=== PATIENT | male | born 1955 | race Caucasian/White ===

== ENCOUNTER 2024-06-18 16:04 | Inpatient (IN) | payer MEDICARE, OTHER, SELFPAY ==
[2024-06-18] VITALS (11 sets, daily range): BP systolic 105–135; BP diastolic 64–92; BMI 35.0
--- NOTE | 2024-06-18 14:48 | ED.GENMED ---
History of Present Illness
General
Chief Complaint: Chest Pain
Source: patient
Exam Limitations: none
Time Seen by Provider: 06/18/24 14:47
Nursing documentation reviewed up to this point in time: agreed with
History of Present Illness
History of Present Illness:
68-year-old male presents emergency department after a syncope episode while at work. 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 He noted some chest pain that felt like reflux. He vomited. He reports some mild chest pain this time. It
does not radiate to his back or abdomen.
Past History
Past History
ED Past Medical History: CAD, Hypercholesterolemia, NIDDM and Other (Kidney stones)
ED Past Surgical History: Urological
Social History
Tobacco: Non-smoker
Alcohol: None
Drug: None
Personal:
Living: with family
Employment: Employed
Review of Systems
Review of Systems
Allergies reviewed?: Yes
All Other Systems: Not applicable
Constitutional: Reports no symptoms
EENT: Reports no symptoms
Respiratory: Reports no symptoms
Cardiac: Reports chest pain, diaphoresis and syncope
ABD/GI: Reports no symptoms
: Reports no symptoms
Musculoskeletal: Reports no symptoms
Skin: Reports no symptoms
Neurological: Reports no symptoms
Endocrine: Reports no symptoms
Hematologic/Lymphatic: Reports no symptoms
Psychiatric: Reports no symptoms
Phy Exam
Physical Exam
Physical Exam:
Physical Exam
General: Appears uncomfortable, diaphoretic, vomit on shirt
Neck: supple. no meningeal signs. normal posterior pharynx
Heart: s1/s2 regular rate and rhythm, no murmur. equal radial
pulses.
HEENT: Pupils equal round reactive to light, EOMI
Lungs: no acute respiratory distress. clear bilaterally
Abdomen: normal bowel sounds. not tender. no CVAT
Neuro: alert and oriented. no focal neurological deficits cranial nerves II through XII intact
Skin: no rash
Psychiatric: well kept. interactive and cooperative
Extremities: no edema. no calf tenderness. negative homans. good distal pulses
Scores
Heart Score for Chest Pain Patients
STEMI patient?: Yes
Course
Orders/Labs/Results
Orders:
Orders
06/18/24
Electrocardiogram (*1) Stat
Reason for Study: Chest Pain
Comment: DONE
06/18/24 14:41
Electrocardiogram (*1) Urgent
Reason for Study: Chest Pain
EKG- Treatment ONCE
Complete Blood Count/With Diff Urgent
Comprehensive Metabolic Panel Urgent
Protime/PTT Urgent
Troponin I Urgent
MDM/Problems Addressed
Differential Diagnosis Includes:
Dysrhythmia, STEMI
MDM/Problems Addressed:
68-year-old male with STEMI, syncope. Dr. Hess evaluated in ED and took to [facility] where Dr. Dallas will cath. Heparin 4000 given, aspirin 324 and brilinta 180 given.
Chronic conditions affecting care: CAD
Acute Exacerbation and/or Progression of Chronic Illness: CAD
*Pulse Oximetry
Patient hypoxic: no
*EKG
Interpreted by ED Provider?: Yes
EKG Intrepretation Date: 06/18/24
EKG Intrepretation Time: 14:40
Interpretation: abnormal
Comparison EKG: no comparison EKG present
Heart Rate: 60
Rate: normal
Rhythm: sinus
[place]: normal axis
Interval: normal interval
QRS Pattern: normal QRS
Ischemia: ST elevation
*Kitchen Utility Associate Interpretation
Rate: normal
Interpretation: normal
Heart Rate: 62
Rhythm: sinus
*Critical Care Note
Total Time (30-74mins, 75-104mins- exclusive of procedures): Not Applicable
Data Reviewed
Review of Other/Old Records Reveals: Operative Reports (LAD stent placed by Dr. Dallas 03/01/13)
Source: records
Patient Management
Social determinants of health affecting care: Living situation and Strong social support
Discussion with other providers: Civil Design Technician (Jimena Dallas)
Escalation/DeEscalation of care consider admission/obs:
[facility] admit indicated due to STEMI
ED Attending Note
-
Portions of this chart may have been created with voice recognition software.� Occasional wrong word or��sound alike� substitutions may have occurred due to the inherent limitations of voice recognition software.
Discharge Plan
Departure
Patient Disposition: CUSTOMER SPECIALIST
Date of Disposition: 06/18/24
Time of Disposition: 14:47
Admit to: labor commissioner
Presentation/result/management discussed w/ accepting MD/DO: Dr. Hess, cardiology
Patient with high blood pressure during this ER visit?: Yes
Condition: Fair
Discharge Problem:
ST elevation (STEMI) myocardial infarction, Syncope
Prescriptions:
No Action
aspirin 81 MG tablet,delayed release (DR/EC)
81 mg PO DAILY
metformin 500 mg Tablet
500 mg PO BID
atorvastatin 20 mg Tablet
20 mg PO DAILY
glipizide 10 mg Tablet
10 mg PO DAILY
ondansetron 8 mg tablet,disintegrating
8 mg PO TID PRN (Reason: nausea and vomiting) Qty: 20 0RF
oxycodone 5 mg tablet
5 mg PO Q4H PRN (Reason: pain) Qty: 20 0RF
tamsulosin [Flomax] 0.4 mg Capsule
0.4 mg PO DAILY Qty: 14 0RF
Referrals:
Campbell Damon DO [Family Provider] -
Discharge Date and Time
Print Language: PORTUGUESE
[2024-06-18 15:08] LABS: % Basophils 0.6 % (0-2); % Eosinophils 3.5 % (0-6); % Immature Granulocytes 0.4 % (0-0.5); % Lymphocytes 34.5 % (20.5-51.1); % Monocytes 7.4 % (1.7-9.3); % Neutrophils 53.6 % (42.2-75.2); Absolute Basophils 0.1 10^3/uL (0-0.2); Absolute Eosinophils 0.4 10^3/uL (0-0.7); Absolute Immature Granulocytes 0.1 10^3/uL (0-0.05); Absolute Lymphocytes 4.3 10^3/uL (1.2-3.4); Absolute Monocytes 0.9 10^3/uL (0.1-0.6); Absolute Neutrophils 6.6 10^3/uL (1.4-6.5); Hematocrit 49.5 % (39.0-52.0); Hemoglobin 17.3 g/dL (13.0-18.0); Mean Corp Hgb Conc. 34.9 g/dL (33.0-37.0); Mean Corpuscular Volume 85.9 fL (80.0-94.0); Mean Platelet Volume 11.5 fL (7.4-10.4); Nucleated Red Blood Cells % 0 % (-); Platelet Count 265 10^3/uL (130-400); Red Blood Cell Count 5.76 10^6/uL (4.70-6.10); White Blood Cell Count 12.4 10^3/uL (4.8-10.8)
[2024-06-18 15:11] LABS: ACT-LR - POC 244 Seconds (116-155)
[2024-06-18 15:18] LABS: ALT (SGPT) 27 U/L (0-50); AST (SGOT) 28 U/L (17-59); Albumin 4.9 g/dl (3.5-5.0); Alkaline Phosphatase 137 U/L (38-126); Blood Urea Nitrogen 27 mg/dl (9-20); Calcium 9.7 mg/dl (8.4-10.2); Carbon Dioxide 22 mmol/L (22-30); Chloride 104 mmol/L (98-107); Estimated Creatinine Clearance 65 ml/min; Glucose 245 mg/dl (70-99); Potassium 4.4 mmol/L (3.5-5.1); Sodium 143 mmol/L (135-145); Total Bilirubin 0.6 mg/dl (0.2-1.3); Total Protein 7.9 g/dl (6.3-8.2); eGFR > 60.00
--- NOTE | 2024-06-18 15:21 | HPS.HSE ---
Family Physician
-
Family Physician: Campbell Damon
Chief Complaint
-
Syncope/STEMI
History of Present Illness
68-year-old male presents to ED after a syncopal episode while at work. 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 EKG with inferior STEMI and he was given ASA/Heparin/Brilinta and
brought urgently to the lab[facility]. On arrival he denies chest pain.
Medical History
Past Medical History
Past Medical History: Reports CAD (PCI LAD 2012), HTN, Hypercholesterolemia, NIDDM and Other (Kidney stones, diverticulosis, lumbar disc disease, MICKEY)
Past Surgical History: Reports Cardiac (stent) and Urological (vasectomy)
Social History
Tobacco: Non-smoker
Alcohol: None
Drug: None
Personal:
Living: With Family
Employment: Employed (Radiologist at )
Family History
Family History: Not pertinent
Allergies / Home Medications
Allergies reflects when Allergies were last updated in [email or web address].
Home Medications with original date entered in [email or web address]
Allergy/Medication List:
Allergies
Allergy/AdvReac Type Severity Reaction Status Date / Time
No Known Allergies Allergy Verified 06/18/24 14:42
�Medication �Instructions �Recorded �Confirmed �Type
aspirin 81 mg tablet,delayed 81 mg PO DAILY 03/01/13 06/18/24 History
release
glipizide 10 mg tablet 10 mg PO DAILY 06/11/22 06/18/24 History
metformin 500 mg tablet 500 mg PO BID 06/11/22 06/18/24 History
atorvastatin 40 mg tablet 40 mg PO QPM 06/18/24 06/18/24 History
dapagliflozin propanediol 10 mg 10 mg PO DAILY 06/18/24 06/18/24 History
tablet (Farxiga)
lisinopril 10 mg tablet 10 mg PO DAILY 06/18/24 06/18/24 History
Review of Systems
-
A 12 point ROS was completed and negative except as noted: Yes
Physical Exam
Vital Signs
Vital Signs
Pulse Resp BP Pulse Ox
99 18 135/92 97
06/18/24 14:42 06/18/24 14:42 06/18/24 14:42 06/18/24 14:42
Physical Exam
General: No Apparent Distress (deferred as patient prepped and draped on laborer wrecking and salvaging table for emergent procedure)
Laboratory Results
-
06/18/24 14:51
06/18/24 14:51
Laboratory Results
PT Cancelled 06/18/24 14:51
INR Cancelled 06/18/24 14:51
APTT Cancelled 06/18/24 14:51
Total Bilirubin 0.6 mg/dl (0.2-1.3) 06/18/24 14:51
AST 28 U/L (17-59) 06/18/24 14:51
ALT 27 U/L (0-50) 06/18/24 14:51
Alkaline Phosphatase 137 U/L (38-126) H 06/18/24 14:51
Data Reviewed
-
Medical Tests (Nuc Med, Echo, EKG etc): Report Reviewed by me
Impression/Plan
-
PCP: Campbell Damon, DO
CDY: Koko Dallas MD
IMPRESSION/PLAN:
#Inferior STEMI/Syncope - post PCI RCA, admit IVU, radial band per protocol
Serial troponin to peak
Check Echo, EF nl, no valve disease 2022
DAPT ASA/Brilinta
continue lisinopril, new start to metoprolol, statin
#Hyperlipidemia - Check lipid profile, continue atorvastatin 40mg daily
#NIDDM - A1c 9.6% in 2021, recheck A1c, SSI while hospitalized
hold metformin 48 hours post procedure
resume glipizide and farxiga
#HTN - continue lisinopril, will add BB, monitor trend
continue to monitor 48 hours on tele
[2024-06-18 15:26] LABS: ACT-LR - POC > 397 Seconds (116-155)
[2024-06-18 15:49] LABS: Troponin I 0.275 ng/ml
--- NOTE | 2024-06-18 16:17 | ITS.CL.CATH ---
Carbon Sequestration Plant Operator - Catheterization
Cardiac Catheterization
Procedure Report:
CARDIAC CATHETERIZATION REPORT
Date of Procedure: 06/18/2024
Referring: Domingo Judge DO
Indication: Inferior STEMI
�
HEMODYNAMIC DATA
AO:123/78
LV: 123/16
�
LEFT VENTRICULOGRAPHY: Inferior hypokinesis with otherwise normal wall motion with EF 51%
�
CORONARY ANGIOGRAPHY
Dominance: Right
Left Main: Normal
LAD: Widely patent stent extending from the proximal into the mid LAD (JER 2012). The stent has no restenosis. The remainder of the LAD proper has trivial luminal disease. The medium sized D1 originates from within the stented segment and has
high-grade ostial disease
Circumflex: Mild luminal irregularities
RCA: 99% proximal RCA stenosis on an extremely angulated segment. There is MINDY grade II flow distal to the lesion
Angioplasty: The patient underwent immediate PCI for involving inferior STEMI. Heparin was used for anticoagulation. He had chewed Brilinta 180 mg and been given aspirin 324 mg in the emergency department. He takes his aspirin 81 mg daily
religiously and did take it this morning. A 6 Sami JR4 guide catheter was used. A Hi-Torque floppy wire was advanced to the lesion site but we were not able to get this wire through the lesion into the mid RCA. A 0.014 compatible Jacqueline
exchange catheter was then advanced into the RCA and the floppy wire removed and exchanged for a Fielder XT wire. At this time there was loss of flow in the RCA with significant ST segment elevation on the monitor and recurrent severe chest
discomfort. He had mild bradycardia but did not require atropine and systolic blood pressure remained greater than 100 mmHg. With some extremely good fortune, we were able to get the Fielder XT wire through the lesion and then down into the distal
RCA. The exchange catheter would not cross the lesion�we were going to cross the lesion and exchanged for a more supportive guidewire if that were possible. The exchange catheter was removed and angioplasty accomplished with a 2.0 x 15 Euphora
balloon inflated to 10 ana. We then placed a 3.25 x 15 Xience JER across the lesion and deployment at 14 naa was followed by postdilatation with a 3.25 NC Euphora to 17 ana. The final angiographic result was outstanding with no residual stenosis
and advent of MINDY grade III flow to a large PDA and three moderate-sized right posterolateral branches. There were no procedural complications. Once flow was restored, ST segment elevation on the monitor completely resolved and chest
discomfort improved significantly
�
Closure Device: None-the procedure was performed via the right radial artery. The Omer's test was normal prior to the procedure.
�
Radiation (mGy): 1044
DAP (cm2.Gy): 70.2
Fluoroscopy time: 10.8 minutes
�
CONCLUSIONS
1:�I nferior STEMI of approximately 1 hours duration
2:��Inferior hypokinesis with EF 51%
3. Double-vessel CAD involving the proximal RCA and D1 as described. The ostial diagonal lesion originates from within the stented segment of LAD and is best treated medically unless he develops symptoms from this lesion. Of note, this lesion was
not present at the completion angiogram from the February 2013 procedure.
4. 99% proximal RCA stenosis with slow antegrade flow successfully stented with 3.25 x 15 Xience JER with outstanding result
5. Recommend DAPT for 12 months and continued aggressive risk factor modification efforts. High intensity statin should continue with the target LDL 55 or below
�
�
Copy to: Campbell Damon DO, Rufino Soto MD, Koko Dallas MD
�
Koko Dallas MD, [facility], [facility]
[2024-06-18] MEDS: NSS 1000 IV (16:30)
[2024-06-18 16:33] LABS: Glucose - Point of Care 229 mg/dl (70-99)
--- NOTE | 2024-06-18 18:02 | PTCARENOTE ---
Received pt post cath. VSS. Right radial cath site w/ R band intact w/ 10 ml of air. Pt denies chest pain. Orders noted. Will monitor.
[2024-06-18] MEDS: NOVOLOG FLEXPEN-MODERATE RESISTANCE 3 UNITS SC (18:18)
[2024-06-18] MEDS: LIPITOR 40 MG PO (18:22)
[2024-06-18] MEDS: BRILINTA 90 MG PO (19:51)
[2024-06-18 22:32] LABS: Glucose - Point of Care 172 mg/dl (70-99)
--- NOTE | 2024-06-18 23:09 | PTCARENOTE ---
Received patient at change of shift. SR on the monitor, HR in the 90s. R radial band removed and dressing applied as per protocol, see documentation. Dressing CDI. No complaints from pt at this time, call godwin within reach.
[2024-06-19 04:31] VITALS: BP 125/73
[2024-06-19 05:02] LABS: Hematocrit 42.1 % (39.0-52.0); Hemoglobin 14.7 g/dL (13.0-18.0); Mean Corp Hgb Conc. 34.9 g/dL (33.0-37.0); Mean Corpuscular Hgb 30.2 pg (27.0-31.0); Mean Corpuscular Volume 86.6 fL (80.0-94.0); Mean Platelet Volume 11.5 fL (7.4-10.4); Platelet Count 216 10^3/uL (130-400); Red Blood Cell Count 4.86 10^6/uL (4.70-6.10); Red Cell Dist. Width 12.9 % (11.5-14.5); White Blood Cell Count 9.2 10^3/uL (4.8-10.8)
[2024-06-19 05:25] LABS: Blood Urea Nitrogen 27 mg/dl (9-20); Calcium 9.1 mg/dl (8.4-10.2); Carbon Dioxide 22 mmol/L (22-30); Chloride 107 mmol/L (98-107); Estimated Creatinine Clearance 70 ml/min; Glucose 170 mg/dl (70-99); HDL Cholesterol 48 mg/dl; LDL Cholesterol, Calculated 74 mg/dl; Potassium 4.2 mmol/L (3.5-5.1); Sodium 142 mmol/L (135-145); Total Cholesterol 153 mg/dl (50-199); Triglyceride 156 mg/dl (10-149); Very Low Density Lipoprotein 31 mg/dl (0-30); eGFR > 60.00
[2024-06-19 06:52] VITALS: BP 114/76
[2024-06-19] MEDS: ZESTRIL 10 MG PO (07:43)
[2024-06-19] MEDS: FARXIGA 10 MG PO (07:45)
[2024-06-19] MEDS: LOW STRENGTH ASPIRIN 81 MG PO (07:45)
[2024-06-19] MEDS: BRILINTA 90 MG PO ×2 (07:45→19:42)
[2024-06-19] MEDS: GLUCOTROL 10 MG PO (07:45)
[2024-06-19] MEDS: TOPROL XL 25 MG PO ×2 (07:45→19:41)
[2024-06-19] MEDS: FLUSH (NSS) 2 FLUSH IV (07:46)
[2024-06-19 07:49] LABS: Glucose - Point of Care 186 mg/dl (70-99)
[2024-06-19] MEDS: NOVOLOG FLEXPEN-MODERATE RESISTANCE 1 UNITS SC ×2 (07:49→12:01)
[2024-06-19 08:25] LABS: ACT-LR - POC > 397 Seconds (116-155)
--- NOTE | 2024-06-19 08:46 | W.PN.CARDCBS ---
Addendum entered and electronically signed by Carlos Small MD 06/19/24 09:21:
68 yo male with CAD, HTN, DM admitted with inferior STEMI, s/p JER to RCA 06/18. Chest pain free today. Exam with RRR, no murmurs, no edema. LDL 74. A1c pending. Tele: SR 90s.
Echo today.
Continue DAPT.
Increase Toprol XL to 25mg bid.
Increase atorvastatin to 80mg to target LDL under 55.
Original Note:
Today's Communication / Plan
-
continue post MN care
DAPT ASA/Brilinta
Impression / Plan
-
Primary care physician: Campbell Damon, DO
Primary road maker: Koko Dallas MD
IMPRESSION/PLAN:
#Inferior STEMI/Syncope - post PCI RCA [id number] Xience JER, patent LAD stent
residual ostial D1 stenosis will treat medically for now
Rad site stable, tele SR with one 3b NSVT
Serial troponin to peak, 8.45 this am
Check Echo today, EF nl, no valve disease 2022
DAPT ASA/Brilinta (CM to eval cost)
continue lisinopril, atorvastatin, new start to metoprolol
Cardiac rehab c/s
f/u cbc AGENCY DIRECTOR in 2-4 weeks
#Hyperlipidemia - LDL 74, TG 156, goal LDL under 55, continue atorvastatin 40mg daily, t/c adding ezetimibe
#NIDDM - A1c 9.6% in 2021, he states more recently was 7.6%, A1c pending, SSI while hospitalized
hold metformin 48 hours post procedure
resume glipizide and farxiga
#HTN - continue lisinopril, will add BB, monitor trend
continue to monitor another 24 hours on tele
CONCLUSIONS
1:�I nferior STEMI of approximately 1 hours duration
2:��Inferior hypokinesis with EF 51%
3. Double-vessel CAD involving the proximal RCA and D1 as described. The ostial diagonal lesion originates from within the stented segment of LAD and is best treated medically unless he develops symptoms from this lesion. Of note, this lesion was
not present at the completion angiogram from the February 2013 procedure.
4. 99% proximal RCA stenosis with slow antegrade flow successfully stented with 3.25 x 15 Xience JER with outstanding result
5. Recommend DAPT for 12 months and continued aggressive risk factor modification efforts. High intensity statin should continue with the target LDL 55 or below
Progress Note - Inspector Packer Glass Container
Subjective
Date of Service: June 19, 2024
no cp, sob
Objective
Labs:
06/19/24 04:45
06/19/24 04:45
Labs
Hgb 14.7 g/dL (13.0-18.0) 06/19/24 04:45
Hct 42.1 % (39.0-52.0) 06/19/24 04:45
Plt Count 216 10^3/uL (130-400) 06/19/24 04:45
PT Cancelled 06/18/24 15:13
INR Cancelled 06/18/24 15:13
APTT Cancelled 06/18/24 15:13
Sodium 142 mmol/L (135-145) 06/19/24 04:45
Potassium 4.2 mmol/L (3.5-5.1) 06/19/24 04:45
BUN 27 mg/dl (9-20) H 06/19/24 04:45
Creatinine 1.2 mg/dL (0.7-1.3) 06/19/24 04:45
Glucose 170 mg/dl (70-99) H 06/19/24 04:45
Troponins
06/18/24 06/18/24 06/19/24
14:51 21:05 04:45
Troponin I 0.275 H* 6.500 H* D 8.540 H* D
Vital Signs and I&O:
Vital Signs
Temp Pulse Resp BP Pulse Ox
98.3 F 97 20 114/76 97
06/19/24 06:50 06/19/24 07:30 06/19/24 06:50 06/19/24 06:52 06/19/24 06:50
Vital Signs
Temp Pulse Resp BP Pulse Ox
98.3 F 97 20 114/76 97
06/19/24 06:50 06/19/24 07:30 06/19/24 06:50 06/19/24 06:52 06/19/24 06:50
Intake & Output
06/17/24 06/18/24 06/19/24 06/20/24
06:59 06:59 06:59 06:59
Intake Total 1020 / 1020
Balance 1020 / 1020
Physical Exam
Physical Exam
NAD, AOX3
S1, S2, RRR, no murmur
CTAB, non labored, no wheeze
SNTND bsx4
R rad site c/d/i no HT, good pulse
--- NOTE | 2024-06-19 10:00 | CM ---
Chart reviewed. Patient is independent of ADLS, lives with his in a [address], [address], 0 [address]. Plan is for the patient to return home. CM to follow
--- NOTE | 2024-06-19 10:00 | CM ---
Pricing on Raulito freire the patients [employer] is $413 for the first month, patient is in the deductible phase. Then it will be $103 for a 30 day supply. I placed a free 30 day coupon in the patient's red discharge folder.
--- NOTE | 2024-06-19 11:13 | PTCARENOTE ---
Patient AAOx3, VSS, NSR/SA noted on the monitor. Right wrist dressing c/d/i. He has no complaints. Awaiting Echo.
[2024-06-19 11:54] VITALS: BP 101/77
[2024-06-19 11:59] LABS: Glucose - Point of Care 188 mg/dl (70-99)
[2024-06-19 14:31] LABS: Glycohemoglobin (HgbA1c) 10.8 % (4.0-5.6)
[2024-06-19 16:06] VITALS: BP 113/75
[2024-06-19] MEDS: LOVENOX 40 MG SC (17:33)
[2024-06-19] MEDS: LIPITOR 80 MG PO (17:33)
[2024-06-19] MEDS: NOVOLOG FLEXPEN-MODERATE RESISTANCE SC (17:39)
[2024-06-19 17:40] LABS: Glucose - Point of Care 131 mg/dl (70-99)
[2024-06-19 19:41] VITALS: BP 141/92
--- NOTE | 2024-06-19 20:47 | PTCARENOTE ---
Received patient at change of shift. SR on the monitor, HR in the 90s. VSS. R radial dressing CDI, surrounding skin intact. No complaints from pt at this time, call godwin within reach.
[2024-06-19 22:41] VITALS: BP 129/89
[2024-06-19 22:43] LABS: Glucose - Point of Care 154 mg/dl (70-99)
[2024-06-20 04:43] VITALS: BP 104/75
[2024-06-20 05:25] LABS: Hemoglobin 14.8 g/dL (13.0-18.0); Mean Corp Hgb Conc. 34.4 g/dL (33.0-37.0); Mean Corpuscular Hgb 29.8 pg (27.0-31.0); Mean Corpuscular Volume 86.5 fL (80.0-94.0); Mean Platelet Volume 11.3 fL (7.4-10.4); Platelet Count 215 10^3/uL (130-400); Red Blood Cell Count 4.97 10^6/uL (4.70-6.10); Red Cell Dist. Width 13.2 % (11.5-14.5); White Blood Cell Count 7.6 10^3/uL (4.8-10.8)
[2024-06-20 05:54] LABS: Blood Urea Nitrogen 29 mg/dl (9-20); Calcium 9.1 mg/dl (8.4-10.2); Carbon Dioxide 22 mmol/L (22-30); Chloride 105 mmol/L (98-107); Estimated Creatinine Clearance 65 ml/min; Glucose 166 mg/dl (70-99); Potassium 4.5 mmol/L (3.5-5.1); Sodium 141 mmol/L (135-145); eGFR > 60.00
[2024-06-20 07:12] VITALS: BP 126/82
[2024-06-20 07:15] LABS: Glucose - Point of Care 171 mg/dl (70-99)
--- NOTE | 2024-06-20 07:50 | W.PN.CD ---
Today's Communication / Plan
-
Home today
Impression / Plan
-
Primary care physician: Campbell Damon,
Primary alarm signal operator: Koko Dallas MD
IMPRESSION/PLAN:
#Inferior STEMI/Syncope - post PCI RCA [id number] Xience JER, patent LAD stent
residual ostial D1 stenosis will treat medically for now
Rad site stable, tele SR with no further ectopy
Peak trop only 8.5
ECHO showed normal LV function, normal valves
DAPT ASA/Brilinta (CM to eval cost)
continue lisinopril, atorvastatin, new start to metoprolol
Cardiac rehab c/s
f/u cbc LICENSED CLINICAL SOCIAL WORKER in 2-4 weeks then ZR 3 mo
#Hyperlipidemia - LDL 74, TG 156, goal LDL under 55, increase atorvastatin to 80mg daily and repeat Lipids, chem panel in 2-3 mo
#NIDDM - A1c 9.6% in 2021, he states more recently was 7.6%, A1c now 10.4%. I gave him a real beatdown about dietary indescretion. Sweets are his Kryptonite and I told Glenna keep them the hell out of the house as he has no control over them
hold metformin 48 hours post procedure
resume glipizide and farxiga
#HTN - continue lisinopril, will add BB, monitor trend
Home today- NO strenuous activity x 4 wks. OK to work this coming Monday
CONCLUSIONS
1:�I nferior STEMI of approximately 1 hours duration
2:��Inferior hypokinesis with EF 51%
3. Double-vessel CAD involving the proximal RCA and D1 as described. The ostial diagonal lesion originates from within the stented segment of LAD and is best treated medically unless he develops symptoms from this lesion. Of note, this lesion was
not present at the completion angiogram from the February 2013 procedure.
4. 99% proximal RCA stenosis with slow antegrade flow successfully stented with 3.25 x 15 Xience JER with outstanding result
5. Recommend DAPT for 12 months and continued aggressive risk factor modification efforts. High intensity statin should continue with the target LDL 55 or below
Physical Exam
Vital Signs/Labs
Vital Signs
Temp Pulse Resp BP Pulse Ox
98 F 82 20 104/75 97
06/20/24 07:10 06/20/24 04:43 06/20/24 07:10 06/20/24 04:43 06/20/24 07:10
06/19/24 06/20/24 06/21/24
06:59 06:59 06:59
Actual Weight 230 lb
06/20/24 04:50
06/20/24 04:50
PT Cancelled 06/18/24 15:13
INR Cancelled 06/18/24 15:13
APTT Cancelled 06/18/24 15:13
Triglycerides 156 mg/dl (10-149) H 06/19/24 04:45
LDL Cholesterol, Calc 74 mg/dl 06/19/24 04:45
VLDL Cholesterol, Calc 31 mg/dl (0-30) H 06/19/24 04:45
HDL Cholesterol 48 mg/dl 06/19/24 04:45
LAB Results
06/18/24 06/18/24 06/19/24
14:51 21:05 04:45
Troponin I 0.275 H* 6.500 H* D 8.540 H* D
06/19/24
12:46
Troponin I 4.940 H*
Physical Exam
Constitutional: No acute distress
EENT: Anicteric
Cardiovascular: Rhythm & rate is regular and Murmur/rub/gallop absent
Respiratory: Respiratory effort normal, Lungs clear to auscul. and Wheeze Absent
GI: Soft and Normal bowel sounds
Neuro/Psych: AO x 3 and Motor deficits absent
Data Reviewed
-
Date of Service: June 20, 2024
[2024-06-20] MEDS: GLUCOTROL 10 MG PO (08:31)
[2024-06-20] MEDS: NOVOLOG FLEXPEN-MODERATE RESISTANCE 1 UNITS SC (08:31)
[2024-06-20] MEDS: LOW STRENGTH ASPIRIN 81 MG PO (08:31)
[2024-06-20] MEDS: FARXIGA 10 MG PO (08:31)
[2024-06-20] MEDS: TOPROL XL 25 MG PO (08:31)
[2024-06-20] MEDS: BRILINTA 90 MG PO (08:32)
[2024-06-20] MEDS: ZESTRIL 10 MG PO (08:32)
--- NOTE | 2024-06-20 09:19 | W.DS.TRANS ---
DC Summary - Stone Lathe Operator
-
Discharge Instructions:
Discharge Diagnosis/Procedures STEMI, Angioplasty with stent to RCA
Diet Low Cholesterol,Diabetic, Carb Controlled,Low
Fat,2 Gram Sodium
Activity No strenuous activity
Additional Activity No strenuous activity for 4 weeks; Okay to
resume work Monday06/24/24
Driving Restrictions No driving for 24 hours
Bathing Restrictions OK to Shower
Blood Work Lipid and chemistry panel 2-3 months (to be
ordered at outpatient follow-up)
Other Services Cardiac Rehab
Instructions:
Stand-Alone Forms: DC Instructions- Cath/EP Lab
Changes to Home Medications: Yes
Discharge Medications:
DC Medications w/original date entered in [employer]
aspirin 81 mg tablet,delayed release 81 mg PO DAILY Blood Clot Prevention/Tx 03/01/13
glipizide 10 mg tablet 10 mg PO DAILY Diabetes 06/11/22
metformin 500 mg tablet 500 mg PO BID Diabetes 06/11/22
dapagliflozin propanediol 10 mg tablet (Farxiga) 10 mg PO DAILY Gastrointestinal Issue 06/18/24
lisinopril 10 mg tablet 10 mg PO DAILY Blood Pressure 06/18/24
ticagrelor 90 mg tablet (Brilinta) 90 mg PO BID #180 tabs 06/19/24
atorvastatin 80 mg tablet 80 mg PO QPM #30 tabs 06/20/24
metoprolol succinate 25 mg tablet,extended release 24 hr 25 mg PO BID #60 tabs 06/20/24
nitroglycerin 0.4 mg sublingual tablet (Nitrostat) 0.4 mg sublingual Q5-15M PRN chest pain #25 tabs 06/20/24
Home Medication Changes
new to brilinta, metoprolol, nitro, increased atrovastatin from 40 to 80mg
Pending Results: No
--- NOTE | 2024-06-20 09:49 | CM ---
Brilinta script was sent to the patient's pharmacy, pharmacy hopefully will have it available by 6pm. Brilinta is in stock at [facility] in [place], script faxed over and confirmed. Patient has a free 30 day coupon to pick up worker the Brilinta.
[2024-06-20 10:31] VITALS: BP 116/90
--- NOTE | 2024-06-20 12:44 | PTCARENOTE ---
Pt seen by . Pt walking in halls without problem. Telemetry and IV device removed. Discharge instructions reviewed with pt regrding activity guidelines, wound care, medications and possible side effects, reporting cares and concerns and
follow up appt's. Very good understanding verbalized. Pt escorted out via wheelchair and discharged to home.
== END 2024-06-20 11:55 | disposition home or self-care (01) | DRG 322 ==
LOC: IVU 16:04
PROVIDERS: Nurse Practitioner Adult Health; ADMITTING PHYSICIAN Internal Medicine Cardiovascular Disease; EMERGENCY PHYSICIAN Emergency Medicine; FAMILY PHYSICIAN Family Medicine
PROC: B215YZZ Fluoroscopy of Left Heart using Other Contrast (ICD-10-PCS; 2024-06-18)
PROC: 4A023N7 Measurement of Cardiac Sampling and Pressure, Left Heart, Percutaneous Approach (ICD-10-PCS; 2024-06-18)
PROC: 027034Z Dilation of Coronary Artery, One Artery with Drug-eluting Intraluminal Device, Percutaneous Approach (ICD-10-PCS; 2024-06-18)
PROC: B211YZZ Fluoroscopy of Multiple Coronary Arteries using Other Contrast (ICD-10-PCS; 2024-06-18)
DX: I21.11 ST elevation (STEMI) myocardial infarction involving right coronary artery (principal); I25.10 Atherosclerotic heart disease of native coronary artery without angina pectoris; I10 Essential (primary) hypertension; E78.00 Pure hypercholesterolemia, unspecified; E11.9 Type 2 diabetes mellitus without complications; G47.33 Obstructive sleep apnea (adult) (pediatric); K21.9 Gastro-esophageal reflux disease without esophagitis; N20.0 Calculus of kidney; K57.30 Diverticulosis of large intestine without perforation or abscess without bleeding; M51.369 Other intervertebral disc degeneration, lumbar region without mention of lumbar back pain or lower extremity pain; Z95.5 Presence of coronary angioplasty implant and graft; Z79.84 Long term (current) use of oral hypoglycemic drugs; Z79.82 Long term (current) use of aspirin
CPT/HCPCS: 80048; 80053; 80061; 82962; 83036; 84484; 85025; 85027; 85347; 93005; 93306; 93458; 99285; C1725; C1769; C1874; C1894; C9606; Q9967

== ENCOUNTER 2024-08-30 08:43 | Outpatient (RCR) | payer MEDICARE, OTHER, SELFPAY ==
[2024-08-05 08:01] LABS: Glucose - Point of Care 247 mg/dl (70-99)
[2024-08-05 08:34] LABS: Glucose - Point of Care 242 mg/dl (70-99)
[2024-08-09 06:31] LABS: Glucose - Point of Care 184 mg/dl (70-99)
[2024-08-09 07:12] LABS: Glucose - Point of Care 189 mg/dl (70-99)
[2024-08-12 06:30] LABS: Glucose - Point of Care 153 mg/dl (70-99)
[2024-08-14 06:35] LABS: Glucose - Point of Care 187 mg/dl (70-99)
[2024-08-14 07:19] LABS: Glucose - Point of Care 168 mg/dl (70-99)
[2024-08-16 06:26] LABS: Glucose - Point of Care 171 mg/dl (70-99)
[2024-08-16 07:12] LABS: Glucose - Point of Care 179 mg/dl (70-99)
[2024-08-21 06:28] LABS: Glucose - Point of Care 181 mg/dl (70-99)
[2024-08-21 07:21] LABS: Glucose - Point of Care 159 mg/dl (70-99)
[2024-08-23 06:17] LABS: Glucose - Point of Care 174 mg/dl (70-99)
[2024-08-23 07:15] LABS: Glucose - Point of Care 186 mg/dl (70-99)
== END 2024-08-30 23:59 | disposition home or self-care (01) ==
LOC: CRHB 08:43
PROVIDERS: ATTENDING PHYSICIAN Student in an Organized Health Care Education/Training Program
DX: I25.2 Old myocardial infarction (principal); Z95.5 Presence of coronary angioplasty implant and graft
CPT/HCPCS: 82962; G0422; G0423

== ENCOUNTER 2024-09-25 08:35 | Outpatient (RCR) | payer MEDICARE, OTHER, SELFPAY | END 2024-09-25 23:59 | disposition home or self-care (01) | LOC: CRHB 08:35 | PROVIDERS: ATTENDING PHYSICIAN Student in an Organized Health Care Education/Training Program; FAMILY PHYSICIAN Family Medicine | DX: I21.01 ST elevation (STEMI) myocardial infarction involving left main coronary artery (principal); I25.2 Old myocardial infarction (principal); Z95.5 Presence of coronary angioplasty implant and graft | CPT/HCPCS: G0422 ==

== ENCOUNTER 2024-10-28 08:40 | Outpatient (RCR) | payer MEDICARE, OTHER, SELFPAY | END 2024-10-28 23:59 | disposition home or self-care (01) | LOC: CRHB 08:40 | PROVIDERS: ATTENDING PHYSICIAN Student in an Organized Health Care Education/Training Program; FAMILY PHYSICIAN Family Medicine | DX: I25.2 Old myocardial infarction (principal); I25.10 Atherosclerotic heart disease of native coronary artery without angina pectoris (principal); Z95.5 Presence of coronary angioplasty implant and graft; I21.01 ST elevation (STEMI) myocardial infarction involving left main coronary artery | CPT/HCPCS: G0422 ==

== ENCOUNTER → 2024-10-29 06:40 | Outpatient (REF) | payer MEDICARE, OTHER, SELFPAY ==
[2024-10-29 07:41] LABS: ALT (SGPT) 23 U/L (0-50); AST (SGOT) 20 U/L (17-59); Albumin 4.4 g/dl (3.5-5.0); Alkaline Phosphatase 105 U/L (38-126); Blood Urea Nitrogen 23 mg/dl (9-20); Calcium 9.8 mg/dl (8.4-10.2); Carbon Dioxide 25 mmol/L (22-30); Chloride 109 mmol/L (98-107); Glucose 137 mg/dl (70-99); HDL Cholesterol 51 mg/dl; LDL Cholesterol, Calculated 47 mg/dl; Potassium 4.5 mmol/L (3.5-5.1); Sodium 144 mmol/L (135-145); Total Bilirubin 0.6 mg/dl (0.2-1.3); Total Cholesterol 117 mg/dl (50-199); Total Protein 6.8 g/dl (6.3-8.2); Triglyceride 95 mg/dl (10-149); Very Low Density Lipoprotein 19 mg/dl (0-30); eGFR > 60.00
[2024-10-29 07:49] LABS: Urine Albumin Negative (Neg - Trace); Urine Bilirubin Negative (Negative); Urine Character Clear (Clear); Urine Color Yellow; Urine Glucose 4+ (Negative); Urine Ketone Negative (Negative); Urine Leukocyte Negative (Negative); Urine Nitrite Negative (Negative); Urine Occult Blood 1+ (Negative); Urine Specific Gravity 1.015 (<1.030); Urine Urobilinogen Negative (Neg - 1+)
[2024-10-29 08:10] LABS: TSH 2.17 uIU/ml (0.47-4.68)
[2024-10-29 08:19] LABS: % Basophils 0.7 % (0-2); % Immature Granulocytes 0.3 % (0-0.5); % Lymphocytes 27.7 % (20.5-51.1); % Monocytes 8.6 % (1.7-9.3); % Neutrophils 58.7 % (42.2-75.2); Absolute Basophils 0.1 10^3/uL (0-0.2); Absolute Eosinophils 0.3 10^3/uL (0-0.7); Absolute Lymphocytes 1.9 10^3/uL (1.2-3.4); Absolute Monocytes 0.6 10^3/uL (0.1-0.6); Absolute Neutrophils 4.1 10^3/uL (1.4-6.5); Hematocrit 45.9 % (39.0-52.0); Hemoglobin 15.3 g/dL (13.0-18.0); Mean Corp Hgb Conc. 33.3 g/dL (33.0-37.0); Mean Corpuscular Hgb 29.3 pg (27.0-31.0); Mean Corpuscular Volume 87.8 fL (80.0-94.0); Mean Platelet Volume 11.4 fL (7.4-10.4); Nucleated Red Blood Cells % 0 % (-); Platelet Count 222 10^3/uL (130-400); Red Blood Cell Count 5.23 10^6/uL (4.70-6.10); Red Cell Dist. Width 13.6 % (11.5-14.5)
[2024-10-29 08:47] LABS: Microalbumin, Random Urine <0.6 mg/dl (0.6-1.7); Urine Bacteria Few (Negative); Urine Red Blood Cell 0-2 /HPF (0-2); Urine Squamous Cell 0-2 /LPF (Few); Urine White Cell 0-2 /HPF (0-5)
[2024-10-29 09:44] LABS: Glycohemoglobin (HgbA1c) 7.5 % (4.0-5.6)
== END ==
LOC: REG 06:40
PROVIDERS: ATTENDING PHYSICIAN Nurse Practitioner; FAMILY PHYSICIAN Family Medicine; OTHER PHYSICIAN Student in an Organized Health Care Education/Training Program
DX: I25.10 Atherosclerotic heart disease of native coronary artery without angina pectoris (principal); E11.65 Type 2 diabetes mellitus with hyperglycemia; E11.69 Type 2 diabetes mellitus with other specified complication; E78.5 Hyperlipidemia, unspecified; Z12.5 Encounter for screening for malignant neoplasm of prostate
CPT/HCPCS: 36415; 80053; 80061; 81003; 81015; 82043; 82570; 83036; 84443; 85025; G0103

== ENCOUNTER 2024-10-30 06:21 | Outpatient (RCR) | payer MEDICARE, OTHER, SELFPAY | END 2024-10-30 23:59 | disposition home or self-care (01) | LOC: CRHB 06:21 | PROVIDERS: ATTENDING PHYSICIAN Student in an Organized Health Care Education/Training Program; FAMILY PHYSICIAN Family Medicine | DX: I21.01 ST elevation (STEMI) myocardial infarction involving left main coronary artery (principal); Z95.5 Presence of coronary angioplasty implant and graft; I25.2 Old myocardial infarction | CPT/HCPCS: G0422; G0423 ==

== ENCOUNTER → 2024-11-21 06:41 | Outpatient (REF) | payer MEDICARE, OTHER, SELFPAY | LOC: RCS 06:41 | PROVIDERS: ATTENDING PHYSICIAN Student in an Organized Health Care Education/Training Program; FAMILY PHYSICIAN Family Medicine | DX: I25.10 Atherosclerotic heart disease of native coronary artery without angina pectoris (principal) | CPT/HCPCS: 93306 ==